=== PATIENT | male | born 1980 | race Caucasian/White ===

== ENCOUNTER 2020-09-15 08:09 | Inpatient (IN) | payer SELFPAY ==
[~2020-09-15] VITALS: Ht 175.3 cm; Wt 77.1 kg
[2020-09-15] MEDS ORDERED: ONDANSETRON HCL INJ 2MG/ML 2ML 2 MG/ML VIAL IV STA (08:39)
[2020-09-15] MEDS ORDERED: SODIUM CHLORIDE 0.9% 1000ML 1,000 ML IV SCH ×2 (08:45→09:00)
[2020-09-15] MEDS ORDERED: FENTANYL CITRATE/PF 100MCG/2 ML INJ IV ONE (09:00)
[2020-09-15] MEDS ORDERED: ONDANSETRON HCL INJ 2MG/ML 2ML 2 MG/ML VIAL IV PRN (09:00)
[2020-09-15] MEDS ORDERED: MORPHINE SULFATE INJ 4 MG/ML INJ 1ML IV PRN (09:00)
[2020-09-15 09:01] LABS: BASOPHILS % 0.2 % (0.0-1.0); EOSINOPHILS # (AUTO) 0.1 (0.0-0.4); EOSINOPHILS % 0.8 % (0.0-6.0); HEMOGLOBIN 9.1 g/dL (14.0-18.0); LYMPHOCYTES # (AUTO) 0.4 (1.0-3.2); LYMPHOCYTES % 4.7 % (18.0-39.1); MEAN CORPUSCULAR HEMOGLOBIN 24.2 pg (28-32); MEAN CORPUSCULAR HGB CONC 29.4 g/dL (31-35); MEAN CORPUSCULAR VOLUME 82.4 fL (81-99); MONOCYTES # (AUTO) 0.8 (0.2-0.8); MONOCYTES % 9.8 % (4.4-11.3); PLATELET COUNT 344 x10e3/uL (140-360); RED BLOOD COUNT 3.76 x10e6/uL (4.3-5.7); RED CELL DISTRIBUTION WIDTH 16.8 % (11.7-14.4)
[2020-09-15] MEDS ORDERED: LEVETIRACETAM IV ONE (09:15)
[2020-09-15] MEDS ORDERED: SODIUM CHLORIDE 0.9% IV ONE (09:15)
[2020-09-15 09:23] LABS: ALANINE AMINOTRANSFERASE 19 IU/L (0-55); ALBUMIN 3.8 g/dL (3.5-5.0); ALBUMIN/GLOBULIN RATIO 1.3 (0.8-2.0); ALKALINE PHOSPHATASE 84 IU/L (40-150); ANION GAP 13.4 mmol/L (8-16); BLOOD UREA NITROGEN 12 mg/dL (7-26); BUN/CREATININE RATIO 16 (6-25); CALCIUM 8.8 mg/dL (8.4-10.2); CARBON DIOXIDE 24 mmol/L (22-29); CHLORIDE 108 mmol/L (98-107); CREATININE, SERUM 0.73 mg/dL (0.72-1.25); EST GLOMERULAR FILTRATION RATE > 60 ML/MIN (60-); GLUCOSE 105 mg/dL (74-118); POTASSIUM 3.4 mmol/L (3.5-5.1); SODIUM 142 mmol/L (136-145)
[2020-09-15] MEDS ORDERED: LEVETIRACETAM 500 MG/5 ML VIAL IV ONE (09:30)
[2020-09-15 09:40] LABS: CLARITY,URINE CLEAR (CLEAR); COLOR,URINE YELLOW (YELLOW)
[2020-09-15 09:41] LABS: AMPHETAMINES SCREEN,URINE NEGATIVE (NEGATIVE); BENZODIAZEPINES SCREEN,URINE POSITIVE (NEGATIVE); KETONES,URINE NEGATIVE (NEGATIVE); LEUKOCYTE ESTERASE ,URINE NEGATIVE (NEGATIVE); NITRITE,URINE NEGATIVE (NEGATIVE); PHENCYCLIDINE SCREEN,URINE NEGATIVE (NEGATIVE); PROTEIN,URINE DIPSTICK NEGATIVE (NEGATIVE)
[2020-09-15 09:47] LABS: BACTERIA,URINE MODERATE /HPF; BILIRUBIN,URINE NEGATIVE (NEGATIVE); EPITHELIAL CELLS,URINE RARE /LPF; MUCUS,URINE MANY (RARE); URINE UROBILINOGEN 0.2 mg/dL (0.2 - 1)
[2020-09-15] MEDS ORDERED: CEFTRIAXONE SOD 1 GM/NS 50 ML 50 ML IV ONE (10:00)
[2020-09-15] MEDS ORDERED: DIPHENHYDR50 MG/1 ML IV (11:47)
[2020-09-15] MEDS ORDERED: DEXAMETHASO4 MG/1 ML IV (11:47)
[2020-09-15] MEDS ORDERED: ATIVAN2 MG/1 ML IV (11:47)
[2020-09-15] MEDS ORDERED: HYDROMORPHO1 MG/1 ML IV (11:47)
[2020-09-15] MEDS ORDERED: PHENERGAN25 MG/1 ML IV (11:47)
[2020-09-15] MEDS ORDERED: VIMPAT200 MG/20 IV (11:47)
[2020-09-15] MEDS ORDERED: KEPPRA500 MG IV (11:47)
[2020-09-15] MEDS ORDERED: METHOTREXA25 MG/1 ML SC (11:47)
[2020-09-15 11:52] VITALS: BP 139/93
[2020-09-15 12:04] VITALS: BP 139/93
[2020-09-15 13:19] VITALS: BP 139/93
[2020-09-15] MEDS ORDERED: IBUPROFEN 600 MG TAB PO PRN (15:30)
[2020-09-15] MEDS ORDERED: ACETAMINOPHEN 325 MG TAB PO PRN (15:30)
[2020-09-15 16:00] VITALS: BP 124/85
== END 2020-09-15 17:08 | disposition left against medical advice (07) | DRG 101 ==
LOC: ER 08:45 → ERHOLD 08:56 → MED/SURG 10:39
PROVIDERS: ADMIT Internal Medicine; ATTEND Internal Medicine
DX: G40.909 Epilepsy, unspecified, not intractable, without status epilepticus (principal); Z85.89 Personal history of malignant neoplasm of other organs and systems; Z91.041 Radiographic dye allergy status; Z88.5 Allergy status to narcotic agent; Z88.8 Allergy status to other drugs, medicaments and biological substances; Z20.828 Contact with and (suspected) exposure to other viral communicable diseases; R11.2 Nausea with vomiting, unspecified
CPT/HCPCS: 36415; 80053; 80307; 81001; 83605; 85025; 87040; 87071; 87086; 87205; 93005; 99284; J0696; J2270; J2405; J3010; J7030; J7050; U0002